=== PATIENT | female | born 1940 | race American Indian/Alaskan Native ===

== ENCOUNTER 2017-11-09 17:56 | Emergency (ER) | payer MEDICARE ==
--- NOTE | 2017-11-09 19:43 | C.PDOC ---
History Of Present Illness Patient is a 77 y/o female who presents to the ED with a complaint of back pain s/p falling from the edge on a bath tub. Patient denies any LOC and admits to remembering event. In ED, patient is speaking in complete sentences and admits to some back pain. No other physical complaints at this time. Time Seen by Provider: 11/09/17 19:43 Chief Complaint (Nursing): Back Pain History Per: Patient History/Exam Limitations: no limitations Onset/Duration Of Symptoms: Mins Current Symptoms Are (Timing): Still Present Quality Of Discomfort: Dull, Aching Severity: Mild Pain Scale Rating Of: 2 Previous Symptoms: Back Pain Associated Symptoms: None Exacerbating Factor(s): Movement Recent travel outside of the [place]: No Additional History Per: Family Past Medical History Reviewed: Historical Data, Nursing Documentation, Vital Signs Vital Signs: Last Vital Signs Temp 97.3 F L 11/09/17 18:01 Pulse 103 H 11/09/17 18:01 Resp 20 11/09/17 18:01 BP 176/111 H 11/09/17 18:01 Pulse Ox 97 11/09/17 20:16 - Medical History PMH: HTN Surgical History: No Surg Hx Family History: States: No Known Family Hx - Social History Hx Tobacco Use: Yes (heavy smoker) Hx Alcohol Use: No Hx Substance Use: No - Immunization History Hx Tetanus Toxoid Vaccination: No Hx Influenza Vaccination: Yes Hx Pneumococcal Vaccination: No Review Of Systems Constitutional: Negative for: Fever, Chills Musculoskeletal: Positive for: Back Pain Neurological: Negative for: Change in Speech Physical Exam - Physical Exam Appears: Well, Non-toxic, No Acute Distress Skin: Warm, Dry, Other (negative evidence for bruising) Head: Normacephalic Eye(s): bilateral: Normal Inspection Oral Mucosa: Moist Neck: Supple Chest: Symmetrical, Tenderness (mild chest wall) Cardiovascular: Rhythm Regular, No Murmur Respiratory: No Rales, No Rhonchi, No Wheezing Gastrointestinal/Abdominal: Soft, No Tenderness Back: No CVA Tenderness, Other (minimal tenderness to palpation to bilateral rib cage; negative crepitus) Extremity: Normal ROM (x4) Extremity: Bilateral: Atraumatic Neurological/Psych: Oriented x3, Normal Speech, Other (no focal deficits) Gait: Steady ED Course And Treatment O2 Sat by Pulse Oximetry: 97 Progress Note: CXR ordered. Tylenol administered. Disposition Counseled Patient/Family Regarding: Studies Performed, Diagnosis, Need For Followup - Disposition Referrals: [facility] [Outside] Disposition: HOME/ ROUTINE Disposition Time: 19:43 Condition: FAIR Instructions: Bruised Rib (DC), Contusion (DC) Forms: 60mo (Swedish) - Clinical Impression Clinical Impression: Fall, Chest wall contusion - Scribe Statement The provider has reviewed the documentation as recorded by the Scribe Rosalind Kline All medical record entries made by the Scribe were at my direction and personally dictated by me. I have reviewed the chart and agree that the record accurately reflects my personal performance of the history, physical exam, medical decision making, and the department course for this patient. I have also personally directed, reviewed, and agree with the discharge instructions and disposition.
[2017-11-09 21:03] VITALS: BP 162/79; PULSE 80; RESP 18; TEMP 98.4; O2SAT 96
--- NOTE | 2017-11-10 07:12 | RAD ---
Chest x-ray two views History: Fall. Comparison: None available. Findings: No focal infiltrate or effusion. Mild left basilar atelectasis. Right hilar prominence. Left-sided pacemaker. Calcification at the aortic knob. Tortuous aorta. Degenerative changes in the spine and shoulders. Impression: Mild left basilar atelectasis.
== END 2017-11-09 21:26 | disposition home or self-care (01) ==
LOC: C.ER 17:56
DX: S20.219A Contusion of unspecified front wall of thorax, initial encounter (principal); W19.XXXA Unspecified fall, initial encounter